=== PATIENT | male | born 1970 | race African-American/Black ===

== ENCOUNTER 2023-03-07 16:14 | Emergency (ER) | payer OTHER ==
[2023-03-07 16:39] VITALS: BP 125/79; PULSE 91; RESP 16; TEMP 98; BMI 25.7
[2023-03-07] MEDS ORDERED: METHOCARBAMOL 500 MG TABLET PO ONE (16:59)
[2023-03-07] MEDS ORDERED: KETOROLAC TROMETHAMINE 30 MG/1 ML VIAL IM ONE (16:59)
[2023-03-07] MEDS ORDERED: KETOROLAC TROMETHAMINE 30 MG/1 ML VIAL ONE (17:10)
== END 2023-03-07 17:32 | disposition home or self-care (01) ==
LOC: JERFT 16:14
PROC: 3E023GC Introduction of Other Therapeutic Substance into Muscle, Percutaneous Approach (ICD-10-PCS; principal; 2023-03-07)
DX: S39.012A Strain of muscle, fascia and tendon of lower back, initial encounter (principal); M54.31 Sciatica, right side; X50.1XXA Overexertion from prolonged static or awkward postures, initial encounter
CPT/HCPCS: 99284-25